=== PATIENT | female | born 1995 | race Caucasian/White ===

== ENCOUNTER 2020-01-31 11:21 | Outpatient (REF) | payer OTHER, SELFPAY | END 2020-01-31 11:22 | disposition home or self-care (01) | LOC: HO.HMGCLDS 11:21 | PROVIDERS: Visit Provider Nurse Practitioner Family | DX: Z11.1 Encounter for screening for respiratory tuberculosis (principal) | CPT/HCPCS: 86481 ==

== ENCOUNTER 2020-11-05 07:00 | Outpatient (RCR) | payer OTHER, SELFPAY | END 2020-11-05 08:10 | disposition home or self-care (01) | LOC: HO.PTCHIC 07:00 | PROVIDERS: PCP Nurse Practitioner Family; Visit Provider Nurse Practitioner Family | DX: M25.552 Pain in left hip (principal) | CPT/HCPCS: 97110; 97112; 97140; 97161; 97530 ==

== ENCOUNTER 2022-09-10 15:58 | Outpatient (REF) | payer OTHER, SELFPAY ==
[2022-09-10 16:10] LABS: MANUAL DIFF FLAG NO
[2022-09-10 16:45] LABS: Basophils Absolute Auto 0.1 X10*3/uL (0.0-0.2); Basophils Percent Auto 0.9 % (0-2); Eosinophils Absolute Auto 0.3 X10*3/uL (0.0-0.4); Eosinophils Percent Auto 4.3 % (0-4); Hematocrit 39.3 % (37.0-47.0); Imm Gran Abs Auto 0.01 X10*3/uL (0.00-0.03); Imm Gran Pct Auto 0.2 % (0.0-0.4); Mean Corpuscular HGB Conc 33.1 g/dl (31.0-35.0); Mean Corpuscular Hemoglobin 28.5 pg (27.0-33.0); Mean Corpuscular Volume 86.2 fL (80.0-98.0); Mean Platelet Volume 11.9 fL (9.4-12.3); Monocytes Absolute Auto 0.7 X10*3/uL (0.1-1.2); Monocytes Percent Auto 10.1 % (2-11); Neutrophils Absolute Auto 3.5 x10*3/uL (2.0-8.3); Neutrophils Percent Auto 53.5 % (45-73); Platelet Count 203 X10*3/uL (160-400); Red Blood Count 4.56 X10*6/uL (4.20-5.50); Red Cell Distribution Width 12.3 % (11.0-16.0); White Blood Count 6.5 X10*3/uL (4.8-10.8)
[2022-09-10 17:29] LABS: Free T4 (Free Thyroxine) 0.89 ng/dL (0.71-1.85)
== END 2022-09-10 15:59 | disposition home or self-care (01) ==
LOC: HO.LAB 15:58
PROVIDERS: Visit Provider Nurse Practitioner Family
DX: T14.8XXA Other injury of unspecified body region, initial encounter (principal); W57.XXXA Bitten or stung by nonvenomous insect and other nonvenomous arthropods, initial encounter; R79.89 Other specified abnormal findings of blood chemistry
CPT/HCPCS: 36415; 84439; 84443; 85025

== ENCOUNTER 2024-11-17 11:21 | Emergency (ER) | payer OTHER, SELFPAY ==
--- NOTE | 2024-11-17 11:24 | ED_ITS ---
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 Cleaned and bandaged at home. 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) Extremity Location: right: hand Place: home Patient tetanus UTD: Yes Context: accidental and sharp object use Associated symptoms: none Treatments prior to arrival: bandage Related Data Allergies Allergy/AdvReac Type Severity Reaction Status Date / Time No Known Allergies (No Known Allergy Verified 11/17/24 11:36 Allergies*) Review of Systems 2 Review of Systems: Constitutional : No Fever, No Chills, Cardiovascular : No Chest Pain, No SOB Respiratory : No Dyspnea Gastrointestinal : No abdominal pain Musculoskeletal : No Joint Swelling Skin : No rash, positive skin laceration Neuro : No Weakness, No Numbness Yes all other systems are reviewed and are negative [facility] Past Medical History Attestation statement: The following information was validated with the patient. Source: old records reviewed Medical History No pertinent past medical history Social History Social History (Updated 11/17/24 @ 11:28 by Rae Love DO) Patient Tobacco Use Status: Never used Tobacco Advance Directives: No Advance Directives Information Provided: No Physical Exam 2 Vital Signs: Vital Signs: Last Vital Signs Resp 16 11/17/24 11:34 BMI result Body Mass Index 23.3 Appearance: Alert. Oriented X3. No acute distress. Eyes: Pupils equal, round and reactive to light. ENT: Pharynx normal. Neck: Normal inspection. CVS: Pulses normal. BCR noted Respiratory: No respiratory distress. Abdomen: Soft and nontender. Skin: Skin warm and dry. Normal skin color. Extremities: No lower extremity edema. lacerations superficial noted on r index 6cm finger DIP to PIP medial aspect normal ROM and normal flex/ext, L middle finger middle phalanx dorsum very superficial avulsion 2cm Neuro: Oriented X 3. No motor deficit. No sensory deficit. Course Course Course Narrative: patient wanted dermabond for L middle finger declines stitches does not like needles Medications Administered Discontinued Medications Generic Name Dose Route Start Last Admin Trade Name Henok PRN Reason Stop Dose Admin Lidocaine HCl 5 ml 11/17/24 11:22 11/17/24 11:32 Lidocaine Hcl 1 % Mpf 5 Ml Vial SUBCUT 11/17/24 11:23 5 ml ONCE ONE Administration Medical Decision Making Medical Decision Making MDM Narrative: 29 yo female with no sig PMH here with c/o laceration to R index and L middle finger no signs of tendon injury or FB - will suture lacerations Differential Diagnosis Differential Diagnoses: The differential diagnosis associated with the presentation includes laceration no concern for FB or fracture Independent Historian Clinical information obtained from an independent historian. History obtained from or confirmed by: Spouse External Record Review External record reviewed: Outpatient record Procedures Laceration Laceration 1: Site: other (index finger) Side (If applicable): right Size (cm): 6 Description: linear and clean Depth: simple, single layer Local Anesthetic: lidocaine 1% and other anesthetic (digital block) Amount of anesthesia used (mL): 2 Pre-repair: wound explored, irrigated extensively and deep structures intact Skin layer closed with: nylon Size (cm): 5-0 Number of sutures: 5 Technique: simple, interrupted Laceration 2: Site: other (middle finger) Side (If applicable): left Size (cm): 2 Description: flap and clean Depth: simple, single layer Pre-repair: wound explored and irrigated extensively Skin layer closed with: other (dermabond at patient's request) Discharge Plan Discharge Clinical Impression: Laceration Patient Disposition: Home, Self-Care Instructions: Skin Adhesive Care (ED), Laceration (ED) Additional Instructions: monitor for signs of infection - redness, swelling, yellow drainage fevers numbing medication can vary from 4 to 6 hours okay to get dermabond lightly wet in shower in 24 hours keep wounds clean dry and covered stitches out in 7 days no water exposure other than brief shower water Stand Alone Forms: Work/School Release Print Language: Polish
[2024-11-17] MEDS: Lidocaine HCl 1 % MPF 5 ML VIAL SUBCUT (11:32)
[2024-11-17 11:34] VITALS: RESP 16; BMI 23.3
[2024-11-17 12:26] VITALS: BP 104/63; PULSE 81; RESP 16; TEMP 36.7; O2SAT 99
[2024-11-17 12:30] VITALS: BP 104/63; PULSE 81; RESP 16; TEMP 36.7; O2SAT 99
== END 2024-11-17 12:30 | disposition home or self-care (01) ==
PROVIDERS: Emergency Provider Emergency Medicine; PCP Student in an Organized Health Care Education/Training Program
DX: S61.210A Laceration without foreign body of right index finger without damage to nail, initial encounter (principal); S61.213A Laceration without foreign body of left middle finger without damage to nail, initial encounter; W29.0XXA Contact with powered kitchen appliance, initial encounter; Y93.G1 Activity, food preparation and clean up; Y92.010 Kitchen of single-family (private) house as the place of occurrence of the external cause; Y99.9 Unspecified external cause status
CPT/HCPCS: 12004; 99283; 99284; J2003